=== PATIENT | female | born 1940 | race Caucasian/White ===

== ENCOUNTER → 2023-03-24 13:50 | Outpatient (REF) | payer MEDICARE, SELFPAY ==
--- NOTE | 2023-04-07 08:39 | OID.L.PAT ---
Pulmonary Nodule Pat Letter
- -
04/07/23
Donna Bran
[address]
[place], [place] [address]
Imelda Thompson,
A pulmonary nodule was seen on an imaging study done by [facility] Radiology. This was reviewed by the [facility] Pulmonary Nodule Advisory Board and the following recommendation was made:
Recommendation: Follow up Chest CT - now
If you have any questions, please do not hesitate to contact your primary care physician. If you are in need of a Physician, you can go to [email or web address] and click on 'Find a Provider'. Type 'Family Medicine' in the search.
Oncology Nurse Navigator
[facility]
[phone]
--- NOTE | 2023-04-07 08:40 | OID.L.REC ---
Pulmonary Nodule Follow Up
- Recommendation
04/07/23
Pulmonary Nodule Review Recommendations
Your patient, Donna Bran, had a pulmonary nodule seen on a CT Thoracic Spine imaging study done on 03/24/23 in the [facility] Radiology Department.
This was reviewed by the [facility] Pulmonary Nodule Advisory Board and the following recommendation was made:
Recommendation: Follow up Chest CT - now
If you have any questions please do not hesitate to contact us.
Sincerely,
Oncology Nurse Navigator
[facility]
[phone]
== END ==
LOC: HWRAD 13:50
PROVIDERS: ATTENDING PHYSICIAN Anesthesiology; FAMILY PHYSICIAN Family Medicine
DX: K56.51 Intestinal adhesions [bands], with partial obstruction (principal)
CPT/HCPCS: 72128

== ENCOUNTER → 2023-04-08 11:17 | Outpatient (REF) | payer MEDICARE, SELFPAY | LOC: HWRAD 11:17 | PROVIDERS: ATTENDING PHYSICIAN Family Medicine | DX: R91.1 Solitary pulmonary nodule (principal) | CPT/HCPCS: 71250 ==

== ENCOUNTER → 2023-06-25 12:55 | Outpatient (REF) | payer MEDICARE, SELFPAY ==
[2023-06-25 14:08] LABS: % Basophils 0.2 % (0-2); % Eosinophils 2.2 % (0-6); % Immature Granulocytes 0.2 % (0-0.5); % Lymphocytes 28.1 % (20.5-51.1); % Monocytes 5.5 % (1.7-9.3); % Neutrophils 63.8 % (42.2-75.2); Absolute Eosinophils 0.1 10^3/uL (0-0.7); Absolute Lymphocytes 1.5 10^3/uL (1.2-3.4); Absolute Monocytes 0.3 10^3/uL (0.1-0.6); Absolute Neutrophils 3.5 10^3/uL (1.4-6.5); Hematocrit 26.3 % (37.0-47.0); Hemoglobin 8.9 g/dL (12.0-16.0); Mean Corp Hgb Conc. 33.8 g/dL (33.0-37.0); Mean Corpuscular Hgb 29.7 pg (27.0-31.0); Mean Corpuscular Volume 87.7 fL (81.0-99.0); Mean Platelet Volume 9.3 fL (7.4-10.4); Nucleated Red Blood Cells % 0 %; Platelet Count 214 10^3/uL (130-400); Red Cell Dist. Width 13.1 % (11.5-14.5); White Blood Cell Count 5.5 10^3/uL (4.8-10.8)
[2023-06-25 14:15] LABS: ALT (SGPT) 13 U/L (0-35); AST (SGOT) 15 U/L (14-36); Albumin 3.7 g/dl (3.5-5.0); Alkaline Phosphatase 98 U/L (38-126); Blood Urea Nitrogen 49 mg/dl (7-17); Calcium 9.4 mg/dl (8.4-10.2); Carbon Dioxide 28 mmol/L (22-30); Chloride 101 mmol/L (98-107); Creatine Phosphokinase 34 U/L (30-135); Glucose 99 mg/dl (70-99); HDL Cholesterol 66 mg/dl; LDL Cholesterol, Calculated 34 mg/dl; Potassium 4.5 mmol/L (3.5-5.1); Sodium 133 mmol/L (135-145); Total Bilirubin 0.3 mg/dl (0.2-1.3); Total Cholesterol 148 mg/dl (50-199); Total Protein 6.2 g/dl (6.3-8.2); Triglyceride 241 mg/dl (10-149); Very Low Density Lipoprotein 48 mg/dl (0-30); eGFR 34.36
[2023-06-25 14:45] LABS: TSH Reflex To Free T4 < 0.02 uIU/ml (0.47-4.68)
[2023-06-25 15:14] LABS: Free T4 2.15 ng/dl (0.78-2.19)
[2023-06-25 17:03] LABS: Urine Albumin Negative (Neg - Trace); Urine Bilirubin Negative (Negative); Urine Character Clear (Clear); Urine Color Yellow; Urine Glucose Negative (Negative); Urine Ketone Negative (Negative); Urine Leukocyte Negative (Negative); Urine Nitrite Negative (Negative); Urine Occult Blood Negative (Negative); Urine Specific Gravity 1.015 (<1.030); Urine Urobilinogen Negative (Neg - 1+)
== END ==
LOC: REG 12:55
PROVIDERS: ATTENDING PHYSICIAN Family Medicine
DX: Z00.00 Encounter for general adult medical examination without abnormal findings (principal); E78.5 Hyperlipidemia, unspecified; E03.9 Hypothyroidism, unspecified
CPT/HCPCS: 36415; 80053; 80061; 81003; 82550; 84439; 84443; 85025

== ENCOUNTER → 2023-07-09 13:30 | Outpatient (REF) | payer MEDICARE, SELFPAY | LOC: WDC 13:30 | PROVIDERS: ATTENDING PHYSICIAN Family Medicine | DX: Z13.820 Encounter for screening for osteoporosis (principal); Z78.0 Asymptomatic menopausal state; E03.9 Hypothyroidism, unspecified; Z12.31 Encounter for screening mammogram for malignant neoplasm of breast | CPT/HCPCS: 76536; 77063; 77067; 77080 ==

== ENCOUNTER → 2023-07-15 10:14 | Outpatient (REF) | payer MEDICARE, SELFPAY ==
[2023-07-15 12:28] LABS: % Basophils 0.4 % (0-2); % Eosinophils 3.3 % (0-6); % Immature Granulocytes 0.2 % (0-0.5); % Lymphocytes 33.6 % (20.5-51.1); % Monocytes 5.4 % (1.7-9.3); % Neutrophils 57.1 % (42.2-75.2); Absolute Eosinophils 0.2 10^3/uL (0-0.7); Absolute Lymphocytes 1.5 10^3/uL (1.2-3.4); Absolute Monocytes 0.3 10^3/uL (0.1-0.6); Absolute Neutrophils 2.6 10^3/uL (1.4-6.5); Hematocrit 30.2 % (37.0-47.0); Mean Corp Hgb Conc. 33.1 g/dL (33.0-37.0); Mean Corpuscular Hgb 29.5 pg (27.0-31.0); Mean Corpuscular Volume 89.1 fL (81.0-99.0); Mean Platelet Volume 10.7 fL (7.4-10.4); Nucleated Red Blood Cells % 0 %; Platelet Count 159 10^3/uL (130-400); Red Blood Cell Count 3.39 10^6/uL (4.20-5.40); Red Cell Dist. Width 12.7 % (11.5-14.5); Reticulocyte Count 1.2 % (0.4-2.8); White Blood Cell Count 4.6 10^3/uL (4.8-10.8)
[2023-07-15 14:06] LABS: CEA 0.74 ng/ml
[2023-07-15 15:58] LABS: CA 125 < 5.5 U/mL (0-35)
[2023-07-16 11:49] LABS: Haptoglobin 122 mg/dL (30-200)
[2023-07-16 15:39] LABS: tTG IgA Antibody 4.4 EU/ml (0-19); tTG IgG Antibody 22.2 EU/ml (0-19)
[2023-07-17 00:11] LABS: Endomysial IgA Antibody Titer <1:10 (<1:10)
[2023-07-17 00:19] LABS: IgA 195 mg/dl (70-400)
== END ==
LOC: REG 10:14
PROVIDERS: ATTENDING PHYSICIAN Family Medicine
DX: D64.9 Anemia, unspecified (principal); R97.1 Elevated cancer antigen 125 [CA 125]; R97.0 Elevated carcinoembryonic antigen [CEA]
CPT/HCPCS: 36415; 82378; 82784; 83010; 83516; 85025; 85045; 86231; 86304

== ENCOUNTER → 2023-10-29 12:27 | Outpatient (REF) | payer MEDICARE, SELFPAY | LOC: HWRAD 12:27 | PROVIDERS: ATTENDING PHYSICIAN Family Medicine | DX: M25.562 Pain in left knee (principal) | CPT/HCPCS: 73562 ==

== ENCOUNTER → 2023-12-31 14:28 | Outpatient (REF) | payer MEDICARE, SELFPAY | LOC: HWRAD 14:28 | PROVIDERS: ATTENDING PHYSICIAN Family Medicine | DX: J40 Bronchitis, not specified as acute or chronic (principal) | CPT/HCPCS: 71046 ==

== ENCOUNTER → 2024-07-09 13:18 | Outpatient (REF) | payer MEDICARE, SELFPAY | LOC: WDC 13:18 | PROVIDERS: ATTENDING PHYSICIAN Family Medicine | DX: Z12.31 Encounter for screening mammogram for malignant neoplasm of breast (principal) | CPT/HCPCS: 77063; 77067 ==

== ENCOUNTER 2024-12-21 00:32 | Emergency (ER) | payer MEDICARE, SELFPAY ==
[2024-12-21] VITALS (13 sets, daily range): BP systolic 165–219; BP diastolic 63–79; PULSE 69–90
[2024-12-21 01:19] LABS: Hematocrit 34.3 % (37.0-47.0); Hemoglobin 12.3 g/dL (12.0-16.0); Mean Corp Hgb Conc. 35.9 g/dL (33.0-37.0); Mean Corpuscular Volume 91.0 fL (81.0-99.0); Nucleated Red Blood Cells % 0 %; Platelet Count 210 10^3/uL (130-400); Red Cell Dist. Width 12.3 % (11.5-14.5)
[2024-12-21 01:54] LABS: Troponin I < 0.012 ng/ml
[2024-12-21] MEDS: TYLENOL 1000 MG PO (02:03)
[2024-12-21] MEDS: ANTIVERT 25 MG PO (02:03)
[2024-12-21 02:25] LABS: ALT (SGPT) 50 U/L (0-35); AST (SGOT) 49 U/L (14-36); Albumin 5.0 g/dl (3.5-5.0); Alkaline Phosphatase 123 U/L (38-126); Blood Urea Nitrogen 23 mg/dl (7-17); Calcium 10.7 mg/dl (8.4-10.2); Carbon Dioxide 31 mmol/L (22-30); Chloride 100 mmol/L (98-107); Glucose 100 mg/dl (70-99); Potassium 4.0 mmol/L (3.5-5.1); Sodium 143 mmol/L (135-145); Total Protein 8.3 g/dl (6.3-8.2); eGFR 49.55
--- NOTE | 2024-12-21 02:46 | ED.GENMED ---
History of Present Illness
General
Chief Complaint: Fall
Source: patient
Exam Limitations: none
Time Seen by Provider: 12/21/24 01:16
Nursing documentation reviewed up to this point in time: agreed with
History of Present Illness
History of Present Illness:
The patient is an 84-year-old female with a past medical history of seizure disorder on Keppra, asthma, hyperlipidemia, GERD, dementia, who presents to the ER today with posterior headache and dizziness following a fall. According to the patients
caregiver, the fall occurred while the patient was walking back to the bedroom from the bathroom. The patient reports not recalling the fall itself. Following the fall, she reported experiencing a headache localized to the back of her head. She
describes the dizziness as jayne to the sensation of the room spinning and but not feeling faint, which she noted to be worse than usual. She reports worse with head movement. The dizziness was described as acute in onset and persists. She did not
lose consciousness during the fall. She has been dealing with ongoing dizziness for multiple months. She has not been evaluated by a provider for the dizziness. She does not recall any premonitory symptoms before the fall. She denies any
subsequent vomiting or nausea following the fall, and there were no bowel movements or straining involved at the time of the incident. The patient is on a morphine pump that is computer-regulated, but she and her caregiver noted recent concerns
regarding its functioning and a recent adjustment to increase the dosage by 10% due to previous inadequate control. She recently took acetaminophen, as reported by her caregiver.
She denies any chest pain, shortness of breath, numbness, or tingling. Following the fall, she was unable to get up independently and required assistance to sit up and stand. She is post to use a walker at baseline but reports that she was not
using it at the time.
Review of Systems
Review of Systems
All Other Systems: ROS reviewed and negative except as documented in HPI and ROS
Phy Exam
Physical Exam
Physical Exam:
General: Patient is well appearing and in no acute distress; non-toxic
Skin: Warm and dry, no rashes or lesions
Head: Normocephalic, atraumatic
Eyes: Sclera non-icteric. EOMs intact.
Neck: No midline cervical spinal tenderness.
Cardiac: Regular rate and rhythm, no murmurs. No palpable crepitus. No tenderness palpation of the external chest wall. No ecchymosis.
Peripheral Vascular: No lower extremity swelling or edema
Pulm: Normal respiratory effort, no wheezes, rales, or rhonchi
Abdomen: No abdominal tenderness to palpation
Musculoskeletal: No tenderness to palpation of the upper extremities bilaterally. No pain with passive range of motion. No pain with internal/external rotation of the hips bilaterally.
Neuro: CN II-XII intact, no focal neurologic deficits.
Psychiatric: Appropriate mood and affect.
Course
Orders/Labs/Results
Orders:
Orders
12/21/24
Electrocardiogram (*1) Stat
Reason for Study: Chest Pain
12/21/24 01:07
Electrocardiogram (*1) Urgent
Reason for Study: Chest Pain
Cardiac Monitoring- Treatment ONCE
EKG- Treatment ONCE
IV Insert/Care/Rem.- Treatment PRN
Pulse Ox/spot Check [RESP] Urgent
Quantity: 1
Special Instructions: ON ROOM AIR
12/21/24 01:10
Complete Blood Count/With Diff Urgent
Troponin I Urgent
12/21/24 01:51
CT Cervical Spine W/o Iv Contr Urgent
Comment:
Reason For Exam: headache, neck pain, following fall
CT Head W/o Iv Contrast Urgent
Comment:
Reason For Exam: headache, dizziness
12/21/24 01:54
Comprehensive Metabolic Panel Urgent
Comment: REDRAW
12/21/24 01:55
Acetaminophen [Tylenol] 1,000 mg PO NOW STA
Meclizine [Antivert] 25 mg PO NOW STA
12/21/24 02:39
0.9% Sodium Chloride 500 ml [Nss] 500 ml IV BOLUS
12/21/24 04:28
Case Management Consult ONCE
Case Management Consult: VN/Home Care
Comment: home physical therapy
Abnormal Lab Results
12/21/24 12/21/24
01:10 01:54
RBC 3.77 L 10^6/uL
(4.20-5.40)
Hct 34.3 L %
(37.0-47.0)
MCH 32.6 H pg
(27.0-31.0)
Absolute Neuts (auto) 7.1 H 10^3/uL
(1.4-6.5)
Neutrophils % 78.7 H %
(42.2-75.2)
Lymphocytes % 15.1 L %
(20.5-51.1)
Carbon Dioxide 31 H mmol/L
(22-30)
BUN 23 H mg/dl
(7-17)
Creatinine 1.1 H mg/dL
(0.6-1.0)
Glucose 100 H mg/dl
(70-99)
Calcium 10.7 H mg/dl
(8.4-10.2)
AST 49 H U/L
(14-36)
ALT 50 H U/L
(0-35)
Total Protein 8.3 H g/dl
(6.3-8.2)
12/21/24 01:10
12/21/24 01:54
Vital Signs
Initial and Last Documented VS:
Initial Vital Signs
BP
219/75
12/21/24 00:36
Last Documented Vital Signs
Pulse Resp BP Pulse Ox
74 16 165/74 91
12/21/24 04:45 12/21/24 04:45 12/21/24 04:44 12/21/24 04:45
MDM/Problems Addressed
Differential Diagnosis Includes:
Differentials include vestibular neuritis, orthostatic hypotension, intracerebral hemorrhage, anemia, dehydration, polypharmacy, posterior CVA
MDM/Problems Addressed:
The patient is an 84-year-old female with a past medical history of seizure disorder on Keppra, asthma, hyperlipidemia, GERD, dementia, who presents to the ER today with posterior headache and dizziness following a fall. According to the patients
caregiver, the fall occurred while the patient was walking back to the bedroom from the bathroom. He heard thud which woke him up from sleep and he found patient on the ground. Patient reports that she was feeling dizzy which caused her to fall.
Dizziness had been ongoing for multiple months. She currently complains of a headache. There is no signs of trauma on physical exam.
She has a normal neurologic exam. Normal finger-nose, [id number]. No nystagmus. Symptoms improved significantly with meclizine and a small IV fluid bolus. Labs reviewed, no leukocytosis noted. Patient does have impaired renal function which
seems to be improved from baseline however we do not have a lot of baseline labs to compare. Patient's does not have physical or digital copies of blood work. Patient and family unaware of impaired renal function. Discussed importance of
follow-up with primary care provider. Patient does have a appointment scheduled for next week for a annual physical exam. Discussed establishing care with marketing research coordinator and repeating blood work. Suspect patient's symptoms related to polypharmacy
versus peripheral vertigo. Patient does take morphine, oxycodone, alprazolam, trazodone, and zolpidem daily. I had a suspect this is contributing patient's symptoms.
Discussed following with pain management doctor as well as primary. Patient stressed understanding. Patient ambulated with walker and demonstrated steady gait for nursing staff. Reviewed case with ED attending. Patient is stable for discharge at
this point with close outpatient follow-up. Prescription given for physical therapy. Will have case management call patient. Patient stable for discharge.
Chronic conditions affecting care:
GERD, asthma, hypothyroidism
*Pulse Oximetry
SaO2: 93
Oxygen Mode of Delivery: Room air
Patient hypoxic: no
*Critical Care Note
Total Time (30-74mins, 75-104mins- exclusive of procedures): Not Applicable
Data Reviewed
Review of Other/Old Records Reveals: Records (No prior ER physician documentation to review, no discharge summaries to review)
Source: patient and records
ED Attending Note
-
Portions of this chart may have been created with voice recognition software.� Occasional wrong word or��sound alike� substitutions may have occurred due to the inherent limitations of voice recognition software.
Discharge Plan
Departure
Patient Disposition: Home (Routine Discharge)
Date of Disposition: 12/21/24
Time of Disposition: 04:37
Patient with high blood pressure during this ER visit?: Yes
Condition: Good
Discharge Problem:
Dizziness, Ambulatory dysfunction
Instructions: Preventing falls in adults, Dizziness in adults - ED (DC), BLOOD PRESSURE
Prescriptions:
No Action
atorvastatin 20 mg Tablet
20 mg PO DAILY
celecoxib 200 mg Capsule
200 mg PO DAILY
donepezil 10 mg Tablet
10 mg PO DAILY
levetiracetam 500 mg Tablet
500 mg PO BID
levothyroxine 125 mcg Tablet
125 mcg PO DAILY
omeprazole 20 mg Capsule,Delayed Release(Dr/Ec)
20 mg PO BID
memantine 28 mg Capsule,Sprinkle,Er 24hr
28 mg PO DAILY
zolpidem [Ambien] 5 mg Tablet
5 mg PO HS
calcium carbonate [Calcium 600] 600 mg calcium (1,500 mg) Tablet
600 mg PO DAILY
oxycodone 10 mg Tablet
10 mg PO Q6H PRN (Reason: pain)
trazodone 150 mg Tablet
150 mg PO HS PRN (Reason: pain)
furosemide 20 mg Tablet
20 mg PO DAILY PRN (Reason: fluid)
budesonide-formoterol [Symbicort] 160-4.5 mcg/actuation Hfa Aerosol Inhaler
1 inh INHALATION ONCE PRN (Reason: asthma)
alprazolam 0.5 mg Tablet
0.5 mg PO HS PRN (Reason: anxiety)
yvkvliugwu-vyymdigryrwgr-kfsk [Butacet] 50-325-40 mg Tablet
1 tab PO Q4H PRN (Reason: pain)
ondansetron HCl [Zofran] 8 mg Tablet
8 mg PO Q12H PRN (Reason: nausea)
Referrals:
Derrell Bright DO [Family Provider, Family Practice]
Ibrahima Tee MD [Active, Nephrology] - Call in 1-3 days for appt
Activity Restrictions/Additional Instructions:
Please continue to monitor your symptoms. Please use your walker when ambulating.
We have given you a prescription for outpatient physical therapy evaluation. At your primary care appointment next week, please discuss that you are seen in the emergency department and has been experiencing dizziness for the past few months.
The combination of oxycodone, trazodone, zolpidem, morphine, and alprazolam daily is likely contributing and I would like you to discuss your medication management with your primary care provider.
Please call the attached number to schedule appointment with marketing research coordinator as your kidney function is decreased, prior to similar lab work. Please have blood work repeated next week.
PLEASE RETURN TO ER SHOULD YOU DEVELOP ANY ACUTE WORSENING OF YOUR SYMPTOMS, CHEST PAIN, SHORTNESS OF BREATH, LOSS OF CONSCIOUSNESS, VISUAL CHANGES, NECK PAIN, ABDOMINAL PAIN, FAINTING SPELLS, OR ANY OTHER SIGNS OR SYMPTOMS CONCERNING TO YOU.
Interventions
Interventions:
*Risk Screen - Suicide Last Done: 12/21/24 00:37
*General Assessment Last Done: 12/21/24 00:37
*Neglect/Abuse Screening Last Done: 12/21/24 00:37
*ED- Fall Risk Assessment Last Done: 12/21/24 04:59
*ED COVID-19 Vaccine History Last Done: 12/21/24 00:43
*ED Influenza Vaccine History Last Done: 12/21/24 00:43
*Nursing Disposition Last Done: 12/21/24 04:59
ED-Musculoskeletal Assessment Last Done: 12/21/24 01:00
ED- Neurological Assessment Last Done: 12/21/24 01:00
ED-Skin Assessment Last Done: 12/21/24 01:00
Discharge Date and Time
Discharge Date/Time: 12/21/24 05:01
Print Language: ESTONIAN
[2024-12-21] MEDS: NSS 500 IV (03:04)
--- NOTE | 2024-12-21 10:40 | EDCM ---
Received consult and reviewed chart. I called and spoke to pt's , Ed. Per Ed, he is planning to take Donna to Outpatient Therapy at [facility], Ed goes to therapy there. They were given an OP PT script from ED this morning.
Pt has an appointment with PCP Dr Bright next week, Ed said he will discuss this with him and ask for VN referral if that seems more appropriate when they see him.
Pt's has my number and will call back with any questions or concerns.
No other CM needs at this time.
== END 2024-12-21 05:01 | disposition home or self-care (01) ==
LOC: EMR 00:32
PROVIDERS: Emergency Medicine; EMERGENCY PHYSICIAN Emergency Medicine; FAMILY PHYSICIAN Family Medicine
DX: R42 Dizziness and giddiness (principal); R26.9 Unspecified abnormalities of gait and mobility; R03.0 Elevated blood-pressure reading, without diagnosis of hypertension; F03.90 Unspecified dementia, unspecified severity, without behavioral disturbance, psychotic disturbance, mood disturbance, and anxiety; G40.909 Epilepsy, unspecified, not intractable, without status epilepticus; E78.5 Hyperlipidemia, unspecified; N28.9 Disorder of kidney and ureter, unspecified; J45.909 Unspecified asthma, uncomplicated; E03.9 Hypothyroidism, unspecified; K21.9 Gastro-esophageal reflux disease without esophagitis; W19.XXXA Unspecified fall, initial encounter; Y92.003 Bedroom of unspecified non-institutional (private) residence as the place of occurrence of the external cause
CPT/HCPCS: 99284; 96360; 96361; 70450; 72125; 80053; 84484; 85025; 93005